=== PATIENT | female | born 1955 | race Caucasian/White ===

== ENCOUNTER 2023-03-12 22:13 | Observation (INO) | payer BC, MEDICARE ==
[~2023-03-12] VITALS: Ht 162.6 cm; Wt 85.0 kg
[2023-03-12 22:58] LABS: BASO % 0.5 % (0.0-1.0); EOS # 0.1 10^3/uL (0.0-0.5); EOS % 0.7 % (0.0-3.0); HEMATOCRIT 36.3 % (36.0-47.0); HEMOGLOBIN 11.9 g/dl (12.0-15.5); LYMPH # 1.4 10^3/uL (1.5-5.0); LYMPH % 16.5 % (24.0-44.0); MEAN CORPUSCULAR HEMOGLOBIN 31.6 pg (27.0-33.0); MEAN CORPUSCULAR HGB CONC 32.8 g/dl (32.0-36.5); MEAN CORPUSCULAR VOLUME 96.5 fl (80.0-96.0); MONO # 0.5 10^3/uL (0.0-0.8); MONO % 6.3 % (2.0-8.0); NEUTROPHILS # 6.3 10^3/uL (1.5-8.5); NEUTROPHILS % 75.6 % (36.0-66.0); PLATELET COUNT, AUTOMATED 243 10^3/uL (150-450); RED BLOOD COUNT 3.76 10^6/uL (4.00-5.40); WHITE BLOOD COUNT 8.4 10^3/uL (4.0-10.0)
[2023-03-12 23:17] LABS: LIPASE 58 U/L (12-53)
[2023-03-12 23:19] LABS: ALBUMIN 3.1 G/DL (3.2-5.2); ALKALINE PHOSPHATASE 122 U/L (46-116); ALT/SGPT 20 U/L (7.0-40); AST/SGOT 25 U/L (<34); BILIRUBIN,DIRECT 0.2 MG/DL (<0.4); BILIRUBIN,TOTAL 0.5 MG/DL (0.3-1.2); BLOOD UREA NITROGEN 22 MG/DL (9-23); CALCIUM LEVEL 7.8 MG/DL (8.3-10.6); CARBON DIOXIDE LEVEL 24 MMOL/L (20-31); CHLORIDE LEVEL 104 MMOL/L (98-107); CREATININE FOR GFR 1.56 MG/DL (0.55-1.30); GLOMERULAR FILTRATION RATE 35.1 (>45); GLUCOSE, FASTING 141 MG/DL (74-106); POTASSIUM SERUM 4.8 MMOL/L (3.5-5.1); SODIUM LEVEL 138 MMOL/L (136-145); TOTAL PROTEIN 6.5 G/DL (5.7-8.2)
[2023-03-12 23:20] LABS: CK-MB VALUE MASS < 1.0 NG/ML (<3.6)
[2023-03-12 23:23] LABS: THYROID STIMULATING HORMONE 0.819 uIU/ML (0.55-4.78)
[2023-03-12 23:29] LABS: CPK CREATINE PHOSPHOKINASE 235 U/L (34-145); MB/CK RELATIVE INDEX 0.42 (< OR =4)
[2023-03-13] VITALS (8 sets, daily range): BP systolic 52–184; BP diastolic 42–110; TEMP 97.3–97.9; O2SAT 96–97
[2023-03-13] MEDS ORDERED: NS 1,000 ML IV ONE ×4 (00:10→23:50)
[2023-03-13 04:44] LABS: BLOOD UREA NITROGEN 26 MG/DL (9-23); CARBON DIOXIDE LEVEL 26 MMOL/L (20-31); CHLORIDE LEVEL 104 MMOL/L (98-107); CK-MB VALUE MASS < 1.0 NG/ML (<3.6); CREATININE FOR GFR 1.75 MG/DL (0.55-1.30); GLOMERULAR FILTRATION RATE 30.8 (>45); GLUCOSE, FASTING 127 MG/DL (74-106); POTASSIUM SERUM 4.7 MMOL/L (3.5-5.1); SODIUM LEVEL 137 MMOL/L (136-145)
[2023-03-13 04:49] LABS: CPK CREATINE PHOSPHOKINASE 226 U/L (34-145); MB/CK RELATIVE INDEX 0.44 (< OR =4)
[2023-03-13] MEDS ORDERED: HEPARIN SOD (PORCINE) 5000UNITS/ML 1ML VIAL/SYRINGE SC SCH (05:50)
[2023-03-13] MEDS ORDERED: NS 500 ML IV ONE (05:50)
[2023-03-13] MEDS ORDERED: HYDROMORPHONE HCL 0.5 MG/ 0.5 ML SYRINGE IV PRN (05:50)
[2023-03-13] MEDS ORDERED: NS 1,000 ML IV SCH (06:00)
[2023-03-13] MEDS: LEVOTHYROXINE 137MCG TABLET (0.137MG) PO SCH (06:00)
[2023-03-13] MEDS ORDERED: ONDANSETRON 4MG 2ML VIAL IV PRN (06:20)
[2023-03-13] MEDS ORDERED: SYNT137T7 PO (06:34)
[2023-03-13] MEDS ORDERED: TIZA10TA PO (06:34)
[2023-03-13] MEDS ORDERED: HUMI40KI2 SC (06:34)
[2023-03-13] MEDS ORDERED: FOLI800C PO (06:34)
[2023-03-13] MEDS ORDERED: METO1TAB7 PO (06:34)
[2023-03-13] MEDS ORDERED: PERC10TA26 PO (06:34)
[2023-03-13] MEDS ORDERED: FLUT15.820 (06:34)
[2023-03-13] MEDS ORDERED: AZEL1SPR3 NARES (06:34)
[2023-03-13] MEDS ORDERED: FLUO40CA PO (06:34)
[2023-03-13] MEDS ORDERED: ALBU8.5H INH (06:34)
[2023-03-13] MEDS ORDERED: FLUT50SP17 NARES (06:34)
[2023-03-13] MEDS ORDERED: ATOR1TAB19 PO (06:34)
[2023-03-13] MEDS ORDERED: OLME1TAB53 PO (06:34)
[2023-03-13] MEDS ORDERED: VITA100093 PO (06:34)
[2023-03-13] MEDS ORDERED: GABA-283 PO (06:34)
[2023-03-13] MEDS ORDERED: ADV250INH INH (06:34)
[2023-03-13] MEDS ORDERED: WARF-60 PO (06:34)
[2023-03-13] MEDS ORDERED: HOME MED LIST COMPLETE! XX SCH (06:35)
[2023-03-13 07:52] LABS: INR 1.3; PROTHROMBIN TIME 16.4 SECONDS (12.5-14.5)
[2023-03-13] MEDS ORDERED: ALBUTEROL 90 MCG/ACT 8GM HFA INHALER INH PRN (08:15)
[2023-03-13] MEDS ORDERED: FLUTICASONE PROP 0.05% NASAL SPRAY 16 GM (FLONASE) NARES PRN (08:15)
[2023-03-13] MEDS: FLUoxetine 20MG CAP PO SCH (09:32)
[2023-03-13] MEDS: VITAMIN D 1,000 INTERNATIONAL UNITS TABLET PO SCH (09:32)
[2023-03-13] MEDS: ADVAIR HFA 115/21MCG INHALER INH SCH ×2 (09:56→18:13)
[2023-03-13] MEDS ORDERED: amLODIPine 5 MG TAB PO ONE ×2 (15:25→21:00)
[2023-03-13] MEDS: PERCOCET 5MG/325MG TAB PO PRN ×2 (15:35→21:12)
[2023-03-13] MEDS ORDERED: WARFARIN SOD 3MG TAB PO SCH (17:00)
[2023-03-13] MEDS ORDERED: GABAPENTIN 400MG CAP PO SCH (21:00)
[2023-03-13] MEDS ORDERED: tiZANidine 4 MG TAB PO SCH (21:00)
[2023-03-13] MEDS ORDERED: ATORVASTATIN 10 MG TAB PO SCH (21:00)
[2023-03-14 00:43] VITALS: BP 70/52
[2023-03-14 01:11] VITALS: BP 78/54
[2023-03-14] MEDS: NS 1,000 ML IV SCH ×2 (01:15→09:09)
[2023-03-14] MEDS ORDERED: MIDODRINE 5 MG TAB PO ONE (02:05)
[2023-03-14 02:20] VITALS: BP 82/58
[2023-03-14 05:10] VITALS: BP 108/68; TEMP 97.5; O2SAT 94
[2023-03-14] MEDS: LEVOTHYROXINE 137MCG TABLET (0.137MG) PO SCH (05:15)
[2023-03-14 06:08] LABS: MEAN CORPUSCULAR HEMOGLOBIN 31.1 pg (27.0-33.0); MEAN CORPUSCULAR HGB CONC 31.4 g/dl (32.0-36.5); MEAN CORPUSCULAR VOLUME 98.9 fl (80.0-96.0); PLATELET COUNT, AUTOMATED 182 10^3/uL (150-450); RED BLOOD COUNT 3.54 10^6/uL (4.00-5.40); WHITE BLOOD COUNT 4.9 10^3/uL (4.0-10.0)
[2023-03-14 06:19] LABS: INR 1.74; PROTHROMBIN TIME 20.7 SECONDS (12.5-14.5)
[2023-03-14 06:42] LABS: CORTISOL AM 6.1 UG/DL (4.3-22.4)
[2023-03-14 06:43] LABS: CALCIUM LEVEL 7.9 MG/DL (8.3-10.6); CREATININE FOR GFR 1.4 MG/DL (0.55-1.30); GLOMERULAR FILTRATION RATE 39.8 (>45); POTASSIUM SERUM 4.5 MMOL/L (3.5-5.1)
[2023-03-14] MEDS: ADVAIR HFA 115/21MCG INHALER INH SCH (07:18)
[2023-03-14] MEDS ORDERED: METO1TAB32 PO (08:38)
[2023-03-14] MEDS ORDERED: amLODIPine 5 MG TAB PO SCH (09:00)
[2023-03-14] MEDS: VITAMIN D 1,000 INTERNATIONAL UNITS TABLET PO SCH (09:09)
[2023-03-14] MEDS: FLUoxetine 20MG CAP PO SCH (09:09)
[2023-03-14 10:00] VITALS: BP 162/76; TEMP 97.7; O2SAT 98
[2023-03-14] MEDS ORDERED: AMLO25TA PO (11:55)
[2023-03-14 12:00] VITALS: BP 166/74
== END 2023-03-14 13:10 | disposition home or self-care (01) ==
LOC: M ED 22:13 → M ED INP 22:14 → M MS5PR 03-13 08:20
PROVIDERS: ADMIT Internal Medicine; ATTEND Internal Medicine
DX: R19.7 Diarrhea, unspecified (principal); I95.9 Hypotension, unspecified; I12.9 Hypertensive chronic kidney disease with stage 1 through stage 4 chronic kidney disease, or unspecified chronic kidney disease; E87.20 Acidosis, unspecified; E86.9 Volume depletion, unspecified; N17.9 Acute kidney failure, unspecified; R55 Syncope and collapse; R11.2 Nausea with vomiting, unspecified; Z86.718 Personal history of other venous thrombosis and embolism; E78.5 Hyperlipidemia, unspecified; E03.9 Hypothyroidism, unspecified; J45.909 Unspecified asthma, uncomplicated; M32.9 Systemic lupus erythematosus, unspecified; G89.29 Other chronic pain; N18.9 Chronic kidney disease, unspecified; F39 Unspecified mood [affective] disorder; Z91.040 Latex allergy status; Z88.5 Allergy status to narcotic agent; Z79.899 Other long term (current) drug therapy; Z79.890 Hormone replacement therapy; Z79.01 Long term (current) use of anticoagulants